=== PATIENT | female | born 1955 | race Caucasian/White ===

== ENCOUNTER → 2017-01-01 | Outpatient (CLI) | payer BC | LOC: MC.RAD 07:40 | DX: Z12.31 Encounter for screening mammogram for malignant neoplasm of breast (principal); Z80.3 Family history of malignant neoplasm of breast ==

== ENCOUNTER → 2017-03-07 | Outpatient (CLI) | payer BC | LOC: COL.PUL 10:25 | DX: R06.02 Shortness of breath (principal); Z87.891 Personal history of nicotine dependence ==

== ENCOUNTER → 2017-12-24 | Outpatient (CLI) | payer BC | LOC: MC.RAD 07:35 | DX: Z12.31 Encounter for screening mammogram for malignant neoplasm of breast (principal); N63.20 Unspecified lump in the left breast, unspecified quadrant ==

== ENCOUNTER → 2017-12-30 | Outpatient (CLI) | payer BC | LOC: MC.RAD 12:57 | DX: N64.89 Other specified disorders of breast (principal); Z80.3 Family history of malignant neoplasm of breast ==

== ENCOUNTER → 2018-07-03 | Outpatient (CLI) | payer BC | LOC: MC.RAD 09:46 | DX: N63.20 Unspecified lump in the left breast, unspecified quadrant (principal); N64.89 Other specified disorders of breast | CPT/HCPCS: G0279 ==

== ENCOUNTER → 2018-07-24 | Outpatient (CLI) | payer BC ==
[2018-07-24] VITALS (9 sets, daily range): BP systolic 132–155; BP diastolic 77–95; PULSE 75–96
[~2018-07-24] MED LIST: ADVIL200 MG PO; ASPIRIN E.C. 8181 MG PO; CALCIUM 600-D 61 TAB PO; EPA FISH OIL1 SGL PO; FOLIC ACID 11 MG/TA1 PO; HOPS PO; IBGARD PO; LIPITOR20 MG PO; MAGNESIUM CITR100 MG PO; PROBIOTIC FORMU1 CAP PO; RESTORIL 1515 MG/CAP PO; THE MEDICINE S200 M2 PO; TYLENOL 500MG500 MG PO; ULTRAM 50MG TAB50 MG PO; VALERIAN PO; VITAMIN E 400 U4001 PO; VITAMIND3 5000 PO; VTAMINC250TA PO; [UNRECOGNIZED DRUG - OTHER] PO
--- NOTE | 2018-07-24 10:00 | NUR ---
PT PLACED ON THE TABLE. MONITORING EQUIPMENT PLACED, SHOWING NSR.
--- NOTE | 2018-07-24 10:10 | NUR ---
PT DID FINE DURING THE PROCEDURE. SITE IS SLIGHTLY BRUISED. PT ASSISTED OFF THE TABLE AND PLACED INTO WHEELCHAIR.
== END ==
LOC: COL.RAD 08:58
DX: M89.9 Disorder of bone, unspecified (principal); R19.09 Other intra-abdominal and pelvic swelling, mass and lump

== ENCOUNTER → 2018-09-01 | Outpatient (CLI) | payer BC | LOC: COL.RAD 10:03 | DX: C79.31 Secondary malignant neoplasm of brain (principal); I10 Essential (primary) hypertension | CPT/HCPCS: A9585 ==

== ENCOUNTER → 2018-09-16 | Outpatient (CLI) | payer BC | LOC: COL.RAD 10:10 | DX: R59.0 Localized enlarged lymph nodes (principal); Z85.118 Personal history of other malignant neoplasm of bronchus and lung ==